=== PATIENT | male | born 1965 | race Caucasian/White ===

== ENCOUNTER → 2017-08-15 | Outpatient (CLI) | payer BC ==
[~2017-08-15] MED LIST: AVELOX ABC PAC400 MG PO; DESYREL300 MG PO; PROAIR HFA8.5 GM IH; ZANTAC 150MG T150 M1 PO
== END ==
LOC: M.MRI 06:56
DX: M47.26 Other spondylosis with radiculopathy, lumbar region (principal); M47.892 Other spondylosis, cervical region; M25.552 Pain in left hip; M79.602 Pain in left arm

== ENCOUNTER → 2019-05-26 | Outpatient (CLI) | payer BC | LOC: M.ULTRA 05-22 13:00 | DX: R22.2 Localized swelling, mass and lump, trunk (principal); M79.89 Other specified soft tissue disorders ==

== ENCOUNTER → 2020-06-06 | Outpatient (CLI) | payer BC ==
[2020-06-06] VITALS (10 sets, daily range): BP systolic 134–155; BP diastolic 84–95
[~2020-06-06] VITALS: Ht 182.9 cm; Wt 163.3 kg
[~2020-06-06] MED LIST changes: +ASA81BEC PO; +BASAGLAR K100 UNIT/1 SUBQ; +MUPIROCIN15 GM TOP; +ROSUVASTATIN CA10 MG PO
[2020-06-06 11:38] LABS: HEMATOCRIT 43.6 % (42.0-52.0); HEMOGLOBIN 14.3 gm/dL (14.0-18.0); MCH 27.7 pg (26.0-34.0); MCHC 32.7 g/dL (28.0-37.0); MCV 84.8 fL (80.0-100.0); MPV 7.3 fl. (7.2-11.1); RBC 5.14 mil/uL (4.50-6.00); RDW-CV 12.8 % (10.5-14.5); WBC 7.6 thou/uL (4.0-11.0)
[2020-06-06 11:42] LABS: ANION GAP 8 mmol/L (7-16); BUN 13 mg/dL (7-18); CALCIUM 9.2 mg/dL (8.5-10.1); CHLORIDE 104 mmol/L (98-107); CO2 27 mmol/L (21-32); CREATININE 0.7 mg/dL (0.6-1.3); GLUCOSE 95 mg/dL (70-99); POTASSIUM 4.1 mmol/L (3.5-5.1); SODIUM 139 mmol/L (136-145)
[2020-06-06 11:46] LABS: ALBUMIN 3.9 g/dL (3.4-5.0); ALKALINE PHOSPHATASE 69 U/L (46-116); CHOLESTEROL 156 mg/dL (<200); HDL CHOLESTEROL 32 mg/dL (>40); LDL CHOLESTEROL 96 mg/dL (<100); SERUM ASSESSMENT Clear; SGOT 19 U/L (15-37); SGPT 33 U/L (30-65); TC:HDL 4.9 Ratio (Not establshd); TOTAL BILIRUBIN 0.3 mg/dL (<0.1-1.0); TOTAL PROTEIN 7.6 g/dL (6.4-8.2); TRIGLYCERIDE 143 mg/dL (<150); VLDL 29 mg/dL (<40)
[2020-06-06 11:47] LABS: APTT 22.5 Seconds (25.0-31.3); PROTIME 10.9 Seconds (9.20-11.50)
--- NOTE | 2020-06-06 15:14 | EKG ---
[place] [address] ELECTROCARDIOGRAM REPORT Name: JAMEEL DASILVA Room: [facility]#: [id number] Admission: 06/06/20 Attend Phys: Fawn Patel Discharge: Date of : 63 Date of Service: 06/06/20 1212 Report #: [id number] THIS REPORT FOR: //name// [facility] Test Date: 2020-06-06 Test Time: 12:12:25 Pat Name: JAMEEL DASILVA Department: Room: Gender: M Spindle Sander: : 1965 Requested By: Agus Cartwright Order Number: [id number] Martha MD: Ankit Hawkins Measurements Intervals [place] Rate: 58 P: 36 VA: 164 QRS: -26 QRSD: 105 T: 43 QT: 436 QTc: 429 Interpretive Statements Sinus rhythm Borderline left axis deviation Compared to ECG 01/17/2012 17:57:01 No significant changes Electronically Signed On 06-06-2020 15:14:17 B[employer]INGUAL SALES CONSULTANT by Ankit Hawkins [email or web address] <ELECTRONICALLY SIGNED> By: Ankit Hawkins MD, FAC 06/06/20 1514 1212 1212 Ankit Hawkins MD, [facility] /EPI
--- NOTE | 2020-06-06 16:11 | CARD ---
[address] [address] CARDIAC CATH REPORT Name: BROWNJAMEEL L Room: [facility] HECTOR Cuello#: [id number] Admission: 06/06/20 Attend Phys: Agus Cartwright MD, Discharge: Date of : 63 Report #: [id number] THIS REPORT FOR: cc: Stan Man Steve T. DO ~ Agus Cartwright MD [facility] APPROVED REPORT Study performed: 06/06/2020 13:46:26 Patient Details Patient Status: Out-Patient Room #: The patient is a 54 year-old male Event Personnel Dylon Albright RTR Monitor, Francy Lea RTR ScrubJimmy Sujita RN RN, Agus Cartwright Senior Sharepoint Developer Procedures Performed Left Heart Cath w/or w/o Coronaries [id number] [facility] Hemostasis w/ Mynx Indication Positive stress test Risk Factors Obesity, Family History, Hypercholesterolemia Admission/Lab Medications/Medications given during procedure Fentanyl IV 25 mcg, Midazolam (Versed) IV 2 mg, Lidocaine Subcut 20 ml Procedure Narrative The patient was brought electively to the Cardiac Catheterization Laboratory and was prepped and draped in a sterile manner. The right femoral was infiltrated with 2% Lidocaine subcutaneous anesthesia. A Blachly 6 FR sheath was inserted into the right femoral artery. Coronary angiography was performed using coronary diagnostic catheters. The right coronary system was accessed and visualized with a Diagnostic JR4 6Fr catheter. The left coronary system was accessed and visualized with a Diagnostic JL4 6Fr catheter. The left ventricle was accessed and visualized with a Diagnostic Pigtail 6Fr catheter. Left ventricular/Aortic Valve gradient assessed via catheter pullback. Left ventriculogram was performed [place] [address] CARDIAC CATH REPORT Name: JAMEEL DASILVA Ilene Room: [facility]#: [id number] Admission: 06/06/20 Attend Phys: Agus Cartwright MD, Discharge: Date of : 63 Report #: [id number] Pre-demployment femoral angiogram was performed . Closure device was deployed with a 6 Fr Mynx. The patient tolerated the procedure well and there were no complications associated with the procedure. There was no hematoma. Intraoperative Conscious Sedation Sedation start time: 1349 Case end Time: 1411 Fentanyl 25 mcg Versed 2 mg Fluoro Time: 3.8 minutes Dose: DAP [id number] cGycm2 1299.89 mGy Contrast Type and Amount: Visipaque 135 ml Hemodynamics The aortic pressure is 151/90 mmHg with a mean of 120 mmHg. The left ventricular pressure is 149/8 mmHg with a mean of mmHg. The left ventricular end diastolic pressure is 25 mmHg. Conclusion 1. Mild coronary artery disease characterized by the following: A 30% mid LAD narrowing 2. Normal left ventricular systolic function, estimated ejection fraction 60% 3. Mild systemic systolic hypertension with moderate elevation of left ventricular end-diastolic pressure at rest Recommendations Cardiac Risk Reduction Program Diagnostic Cath Approved by: Agus Cartwright MD Date/Time: 06/06/2020 16:10:06 <ELECTRONICALLY SIGNED> By: Agus Cartwright MD, [facility] 06/06/20 1610 161 [id number] Cartwright MD, FAC /INF
== END | disposition home or self-care (01) ==
LOC: M.CL 10:46
PROVIDERS: ATTEND Internal Medicine
DX: R94.39 Abnormal result of other cardiovascular function study (principal); I25.10 Atherosclerotic heart disease of native coronary artery without angina pectoris; G47.30 Sleep apnea, unspecified; F17.210 Nicotine dependence, cigarettes, uncomplicated; Z20.828 Contact with and (suspected) exposure to other viral communicable diseases; Z98.890 Other specified postprocedural states; Z79.899 Other long term (current) drug therapy; Z79.01 Long term (current) use of anticoagulants